=== PATIENT | male | born 1995 | race African-American/Black ===

== ENCOUNTER 2018-02-10 10:11 | Emergency (ER) | payer SELFPAY ==
[~2018-02-10] VITALS: Ht 188 cm; Wt 113.4 kg
[2018-02-10 10:21] VITALS: BP 109/64
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
[2018-02-10] MEDS ORDERED: Ketorolac 60mg Inj IM ONE (10:45)
[2018-02-10] MEDS ORDERED: NORCO 5-325 TA1 EACH ORAL (13:07)
[2018-02-10] MEDS ORDERED: CYCLOBENZAPRINE10 MG ORAL (13:08)
--- NOTE | 2018-02-10 13:46 | Diagnostic Imaging Report ---
Indication: Neck Pain Findings: 5 views of the cervical spine were obtained. There is no acute fracture identified. Alignment is normal. The open-mouth odontoid view shows an intact dens and good alignment of the lateral masses with respect to the body of C2. There is no soft tissue swelling. Impression: Negative cervical spine examination.
[2018-02-10 14:22] VITALS: BP 112/72
== END 2018-02-10 14:25 | disposition home or self-care (01) ==
LOC: EMR 11:10
DX: S16.1XXA Strain of muscle, fascia and tendon at neck level, initial encounter (principal); S39.012A Strain of muscle, fascia and tendon of lower back, initial encounter; J45.909 Unspecified asthma, uncomplicated; V43.62XA Car passenger injured in collision with other type car in traffic accident, initial encounter; Y92.488 Other paved roadways as the place of occurrence of the external cause
CPT/HCPCS: 72050; 96372; 99283